=== PATIENT | male | born 1950 | race Caucasian/White ===

== ENCOUNTER 2016-12-04 21:28 | Emergency (ER) | payer SELFPAY ==
--- NOTE | 2016-12-04 22:20 | RAD ---
PROCEDURE: Abdomen Series Clinical History: diffuse abd pain 3 days Indication: Same as above Comparison: None Technique: Two views of the abdomen and pelvis were done. Findings: There is no gross evidence of free air in the abdomen or the pelvis . The small and large bowel gas pattern does not show any evidence of obstruction, ileus or bowel wall thickening. There is no visualization of radiopaque calculi in the outline of the urinary tract. There are no discrete airspace infiltrates or pleural effusions. There are no pneumothoraces. The cardiac mediastinal silhouette is unremarkable There is no significant constipation. Impression: Unremarkable bowel gas pattern. There are no acute findings in the chest Location of Interpretation: [id number] Electronically signed by: Colt Sauceda MD 12/04/2016 10:19 PM CDT Workstation: [id number]
[2016-12-04 23:10] VITALS: O2SAT 99
--- NOTE | 2016-12-04 23:14 | ED.PDOC ---
History of Present Illness - General Chief Complaint: Chest Pain/MS Stated Complaint: Chest/stomach discomfort, nausea Time Seen by Provider: 12/04/16 21:30 Source: patient Exam Limitations: no limitations - History of Present Illness Initial Comments: The patient is a 66-year-old male presenting to the emergency room after 3-4 days of symptoms. Symptoms started last with some diarrhea. Had some mild cramping at the time. He took a couple of doses of Pepto-Bismol and has not had a bowel movement since. Since Sunday he has been having abdominal cramping with some back discomfort. Mild nausea but no vomiting. No chest pain or shortness of breath. No syncope. He does have intermittent colic type symptoms. Severity: moderate Improving Factors: nothing Worsening Factors: nothing Associated Symptoms: loss of appetite, malaise Allergies/Adverse Reactions: Allergies NO KNOWN ALLERGY Allergy (Verified 12/04/16 21:41) Home Medications: Ambulatory Orders NK [NK] 12/04/16 Review of Systems - Review of Systems Constitutional: States: no symptoms reported EENTM: States: no symptoms reported Respiratory: States: no symptoms reported Cardiology: States: no symptoms reported Gastrointestinal/Abdominal: States: see HPI Genitourinary: States: no symptoms reported Musculoskeletal: States: back pain - intermittent Skin: States: no symptoms reported Neurological: States: no symptoms reported Endocrine: States: no symptoms reported Past Medical History (General) - Patient Medical History Hx Stroke: No Hx Congestive Heart Failure: No Hx Diabetes: No - Vaccination History Hx Influenza Vaccination: No Hx Pneumococcal Vaccination: No - Social History Hx Tobacco Use: Yes - Smokes cigars Family Medical History - Family History Father Living Status: Age at (years of age): 82 Cause of : Diabetic complications Hx Family Diabetes: Yes Physical Exam - Physical Exam General Appearance: Alert, Comfortable, No apparent distress Eye Exam: bilateral normal Ears, Nose, Throat: hearing grossly normal, normal ENT inspection, normal pharynx Neck: non-tender, full range of motion, supple Respiratory: chest non-tender, lungs clear, normal breath sounds, no respiratory distress, no accessory muscle use Cardiovascular/Chest: normal peripheral pulses, regular rate, rhythm, no edema Peripheral Pulses: radial,right: 2+, radial,left: 2+, dorsalis pedis,right: 2+, dorsalis pedis,left: 2+ Gastrointestinal/Abdominal: non tender, soft Rectal Exam: deferred Back Exam: normal inspection, no CVA tenderness, no vertebral tenderness Extremity: normal range of motion, non-tender, normal inspection, no pedal edema , normal capillary refill Neurologic: alert, normal mood/affect, oriented x 3 Skin Exam: normal color Comments: Vital Signs - 24 hr 12/04/16 12/04/16 21:41 22:45 Temperature 98.2 F Pulse Rate [ 64 64 Apical] Respiratory 20 20 Rate Blood Pressure 189/93 146/91 [Left Arm] O2 Sat by Pulse 100 99 Oximetry Progress - Progress Progress: 12/04/16 23:15 the patient is a 66-year-old male presenting with abdominal discomfort that is most consistent with constipation as seen on the x-ray. He needs to take a dose of Gilberts oil when he gets home. He needs to significantly increase the amount of fluid that he is drinking over the next few days. I would also recommend taking a day or 2 of MiraLAX for the constipation. ER warnings were given. He should follow up with his primary care doctor later this week. Lab work looks reassuring. - Results/Orders Results/Orders: Laboratory Last Values WBC 8.0 K/mm3 (4.8-10.8) 12/04/16 21:45 RBC 5.09 M/mm3 (4.70-6.10) 12/04/16 21:45 Hgb 15.9 gm/dL (14.0-18.0) 12/04/16 21:45 Hct 45.8 % (42.0-52.0) 12/04/16 21:45 MCV 90.0 fl (80.0-94.0) 12/04/16 21:45 MCH 31.2 pg (27.0-31.0) H 12/04/16 21:45 MCHC 34.6 g/dL (33.0-37.0) 12/04/16 21:45 RDW 13.2 % (11.5-14.5) 12/04/16 21:45 Plt Count 248 K/mm3 (130-400) 12/04/16 21:45 MPV 9.1 fl (7.40-10.4) 12/04/16 21:45 Absolute Neuts (auto) 5.80 K/uL (1.8-6.8) 12/04/16 21:45 Absolute Lymphs (auto) 1.40 K/uL (1.0-3.4) 12/04/16 21:45 Absolute Monos (auto) 0.60 K/uL (0.2-0.8) 12/04/16 21:45 Absolute Eos (auto) 0.20 K/uL (0.0-0.4) 12/04/16 21:45 Absolute Basos (auto) 0.00 K/uL (0.0-0.1) 12/04/16 21:45 Neutrophils % 72.5 % (42.0-78.0) 12/04/16 21:45 Lymphocytes % 17.8 % (20.0-50.0) L 12/04/16 21:45 Monocytes % 7.2 % (2.0-9.0) 12/04/16 21:45 Eosinophils % 2.3 % (1.0-5.0) 12/04/16 21:45 Basophils % 0.2 % (0.0-2.0) 12/04/16 21:45 D-Dimer, Quantitative < 230 ng/mL (0-230) 12/04/16 21:45 Sodium 138 mmol/L (135-145) 12/04/16 21:45 Potassium 4.0 mmol/L (3.6-5.0) 12/04/16 21:45 Chloride 97 mmol/L (101-111) L 12/04/16 21:45 Carbon Dioxide 31 mmol/L (21-31) 12/04/16 21:45 Anion Gap 14.0 (12-18) 12/04/16 21:45 BUN 10 mg/dL (7-18) 12/04/16 21:45 Creatinine 0.96 mg/dL (0.6-1.3) 12/04/16 21:45 BUN/Creatinine Ratio 10.4 (10-20) 12/04/16 21:45 Random Glucose 121 mg/dL (70-105) H 12/04/16 21:45 Serum Osmolality 276.0 mOsm/L (275-295) 12/04/16 21:45 Calcium 9.8 mg/dL (8.4-10.2) 12/04/16 21:45 Magnesium 2.6 mg/dL (1.8-2.5) H 12/04/16 21:45 Total Bilirubin 1.6 mg/dL (0.2-1.0) H 12/04/16 21:45 AST 24 IU/L (10-42) 12/04/16 21:45 ALT 23 IU/L (10-60) 12/04/16 21:45 Alkaline Phosphatase 87 IU/L (42-121) 12/04/16 21:45 Creatine Kinase 69 IU/L (38-174) 12/04/16 21:45 CK-MB (CK-2) 1.2 ng/mL (0.0-4.4) 12/04/16 21:45 CK-MB (CK-2) % Not Reportable 12/04/16 21:45 Troponin I < 0.02 ng/mL (0.01-0.05) 12/04/16 21:45 Serum Total Protein 8.7 gm/dL (6.4-8.2) H 12/04/16 21:45 Albumin 4.9 g/dl (3.2-5.5) 12/04/16 21:45 Globulin 3.8 gm/dL (2.3-3.5) H 12/04/16 21:45 Albumin/Globulin Ratio 1.3 (1.1-1.9) 12/04/16 21:45 Amylase 48 U/L (28-100) 12/04/16 21:45 Lipase 25 U/L (22-51) 12/04/16 21:45 TSH 1.55 uIU/mL (0.34-5.60) 12/04/16 21:45 Urine Color Yellow (Yellow) 12/04/16 21:50 Urine Appearance Clear (Clear) 12/04/16 21:50 Urine pH 7.5 (4.5-7.8) 12/04/16 21:50 Ur Specific [place] 1.020 (1.005-1.030) 12/04/16 21:50 Urine Protein Negative mg/dL 12/04/16 21:50 Urine Glucose (UA) Negative mg/dL (Negative) 12/04/16 21:50 Urine Ketones Negative mg/dL (NEGATIVE) 12/04/16 21:50 Urine Blood Negative (Negative) 12/04/16 21:50 Urine Nitrite Negative 12/04/16 21:50 Urine Bilirubin Negative (NEGATIVE) 12/04/16 21:50 Urine Urobilinogen 0.2 mg/dL (0.2-1.0) 12/04/16 21:50 Ur Leukocyte Esterase Trace (Negative) H 12/04/16 21:50 Urine RBC 0 /hpf 12/04/16 21:50 Urine WBC 3-5 /hpf H 12/04/16 21:50 Ur Epithelial Cells 0 /hpf 12/04/16 21:50 Urine Bacteria 1+ 12/04/16 21:50 Urine Mucus Trace 12/04/16 21:50 abdominal series shows no acute pathology of the chest or abdomen. He does have a fairly large amount of stool present. Departure - Departure Clinical Impression: Constipation Disposition: Discharge to Home or Self Care Condition: Fair Departure Forms: ED Discharge - Pt. Copy, Patient Portal Self Enrollment Instructions: DI for Constipation Diet: full liquid diet - Until the constipation is resolved Activity: increase activity as tolerated Home Medications: Ambulatory Orders NK [NK] 12/04/16 Additional Instructions: the patient is a 66-year-old male presenting with abdominal discomfort that is most consistent with constipation as seen on the x-ray. He needs to take a dose of Gilberts oil when he gets home. He needs to significantly increase the amount of fluid that he is drinking over the next few days. I would also recommend taking a day or 2 of MiraLAX for the constipation. ER warnings were given. He should follow up with his primary care doctor later this week. Lab work looks reassuring.
[2016-12-04 23:33] VITALS: BP 148/92; TEMP 98
== END 2016-12-04 23:32 | disposition home or self-care (01) ==
LOC: ER 21:28
DX: K59.00 Constipation, unspecified (principal); F17.290 Nicotine dependence, other tobacco product, uncomplicated